=== PATIENT | male | born 1980 | race Caucasian/White ===

== ENCOUNTER 2016-10-21 19:14 | Emergency (ER) | payer MEDICAID ==
[2016-10-21] MEDS ORDERED: OPTIRAY 350 100 ML VIAL HMH IV ONE (19:15)
[2016-10-21] MEDS ORDERED: ASPIRIN 81 MG CHEW TAB ONE (19:22)
[2016-10-21] MEDS ORDERED: DILAUDID 1 MG/ML AMP ONE (21:17)
[2016-10-21] MEDS ORDERED: SODIUM CHLORIDE 0.9% 1,000 ML ONE (21:17)
== END 2016-10-21 23:43 | disposition home or self-care (01) ==
LOC: ER 19:14
DX: R07.9 Chest pain, unspecified (principal)
CPT/HCPCS: 36415; 71010; 71275; 74175; 80053; 82550; 83735; 84484; 85025; 85610; 85730; 93005; 96361; 96374